=== PATIENT | male | born 1955 | race Two or more races ===

== ENCOUNTER 2020-10-10 06:53 | Emergency (ER) | payer OTHER ==
[~2020-10-10] VITALS: Ht 182.9 cm; Wt 86.2 kg
[2020-10-10] MEDS ORDERED: ENALAPRIL MALEAT5 MG (07:10)
== END 2020-10-10 11:53 | disposition home or self-care (01) ==
LOC: ER 06:53
DX: R19.7 Diarrhea, unspecified (principal)